=== PATIENT | female | born 1990 | race American Indian/Alaskan Native ===

== ENCOUNTER 2016-08-01 12:15 | Emergency (ER) | payer MEDICAID ==
[2016-08-01 12:49] VITALS: BP 108/68; PULSE 78; RESP 16; TEMP 98.4; O2SAT 100; BMI 20.7
--- NOTE | 2016-08-01 13:07 | ED PDOC ---
Arrival/HPI - General Chief Complaint: Abdominal Pain Time Seen by Provider: 08/01/16 12:57 Historian: Patient - History of Present Illness Narrative History of Present Illness (Text): 08/01/16 13:04 Gisela Wolfe is a 25 year old female who presents to the emergency department complaining of nausea, headache and mild suprapubic discomfort for past 3 days. States that her last menstrual period was July 02. Denies any fever, chills, vomiting, diarrhea, difficulty breathing, urinary symptoms, or any other complaints at this time. Time/Duration: < week (3 days ) Symptom Onset: Gradual Symptom Course: Unchanged Severity Level: Mild Activities at Onset: Light Past Medical History - Provider Review Nursing Documentation Reviewed: Yes - Psychiatric Hx Substance Use: No - Surgical History Hx Dilation and Curettage: Yes Family/Social History - Physician Review Nursing Documentation Reviewed: Yes Family/Social History: No Known Family HX Smoking Status: Never Smoked Hx Alcohol Use: No Hx Substance Use: No Allergies/Home Meds Allergies/Adverse Reactions: Allergies No Known Allergies Allergy (Verified 08/01/16 12:47) Home Medications: Home Meds Medication Instructions Recorded Confirmed No Known Home Med 08/01/16 08/01/16 Physical Exam - Physical Exam Narrative Physical Exam (Text): - Review of Systems Constitutional: Normal. absent: Fatigue, Weight Change, Fevers Eyes: Normal ENT: Normal Respiratory: Normal absent: SOB, Cough, Sputum Cardiovascular: Normal absent: Chest pain, Palpitations, Syncope Gastrointestinal: Present: Suprapubic discomfort, Nausea absent: Diarrhea, Vomiting Genitourinary: Normal. absent: Dysuria, Frequency, Hematuria, No vaginal bleeding or discharge. Musculoskeletal: Normal. absent: Arthralgias, Back Pain, Neck Pain Skin: Normal Neurological: Present: headache absent: Focal Weakness Endocrine: Normal Hemo/Lymphatic: Normal Psychiatric: Normal - Physical exam Patient appears age appropriate, speaking full sentences without difficulty - Systems Exam Head: Present: Atraumatic, Normocephalic Pupils: Present: PERRL Extraocular Muscles: Present: EOMI Conjunctiva: Present: Normal Mouth: Present: Moist Mucous Membranes Neck: Present: Normal Range of Motion. No: MIDLINE TENDERNESS, Paraspinal Tenderness Respiratory/Chest: Present: Clear to Auscultation, Good Air Exchange. No: Respiratory Distress, Accessory Muscle Use, Tachypneic Cardiovascular: Present: Regular Rate and Rhythm, Normal S1, S2, Peripheral Pulses Present. No: Murmurs Abdomen: Present: Normal Bowel Sounds, No: Tenderness, Peritoneal Signs, Rebound, Guarding, Distention Back: Present: Normal Inspection. No: Midline Tenderness, Paraspinal Tenderness Upper Extremity: Present: Normal Inspection. No: Cyanosis, Edema Lower Extremity: Present: Normal Inspection. No: Edema Neurological: Present: GCS=15, Speech Normal, cranial nerves II through XII fully intact with no cerebellar abnormality, neuro-sensory fully intact. No focal neurological deficits. Skin: Present: Warm, Dry, Normal Color. No: Rashes Lymphatic: Present: OX3, NI, NC Psychiatric: Present: Alert, Oriented x 3, Normal Insight, Normal Concentration Vital Signs Reviewed: Yes Vital Signs Temp Pulse Resp BP Pulse Ox 08/01/16 12:49 98.4 F 78 16 108/68 100 Temperature: Afebrile Blood Pressure: Normal Pulse: Regular Respiratory Rate: Normal Appearance: Positive for: Well-Appearing, Non-Toxic, Comfortable Pain Distress: None Mental Status: Positive for: Alert and Oriented X 3 Medical Decision Making ED Course and Treatment: 08/01/16 13:07 Impression: A 25 year old female who presents to the emergency department complaining of nausea, headache and suprapubic discomfort for 3 days. On PE, the abdomen is soft and non-tender, no other significant findings. Differential Diagnosis include but are not limited to: vs. UTI Plan: -- Chlamydia GC -- Pepcid -- Urinalysis -- Reassess and disposition Progress Notes: 08/01/16 13:09 Patient was instructed to follow up with medical records for chlamydia and gonorrhea results. 08/01/16 15:58 Dr. Foster US FINDINGS: The uterus measures 8.5 x 4.1 x 4.8 centimeters. The endometrium measures 12 millimeters. There is no intrauterine sac. The ovaries have a normal sonographic appearance. There is no free fluid the pelvis. IMPRESSION: No evidence of intrauterine sac. Recommend correlation with beta HCG levels and short-term interval follow-up as clinically indicated. Ectopic is not excluded. Patient has been made aware of her ultrasound results findings. She understands to start taking vitamins [id number] Patient also understands to come back into the emergency department or to follow -up with an outpatient photo cartographer for repeat blood work and ultrasound in the next 48 hours. Pt states she understands to return to the ER right away for new or worsening symptoms or for inability to f/u with PMD or specialist as instructed. Patient states that she fully agrees with and understands discharge instructions. States that she agrees with the plan and disposition. Verbalized and repeated discharge instructions and plan. I have given the patient opportunity to ask any additional questions. - Lab Interpretations Lab Results: 08/01/16 13:30 08/01/16 13:30 Lab Results 08/01/16 13:30: WBC 3.6 L, RBC 3.78, Hgb 11.5 L, Hct 33.6 L, MCV 88.9, MCH 30.4 , MCHC 34.2, RDW 12.6, Plt Count 231, MPV 10.6, Gran % 22.1 L, Lymph % (Auto) 58.3 H, [place] % (Auto) 15.7 H, Eos % (Auto) 3.1, Baso % (Auto) 0.8, Gran # 0.79 L , Lymph # 2.1, [place] # 0.6, Eos # 0.1, Baso # 0.03, Sodium 136, Potassium 3.8, Chloride 102, Carbon Dioxide 25, Anion Gap 13, BUN 17, Creatinine 0.8, Est GFR ( Amer) > 60, Est GFR (Non-Af Amer) > 60, Random Glucose 75, Calcium 9.0, Total Bilirubin 0.8, AST 18, ALT 30, Alkaline Phosphatase 53, Total Protein 7.8 , Albumin 4.1, Globulin 3.7, Albumin/Globulin Ratio 1.1, Beta HCG, Quant 274.32 H 08/01/16 13:10: Urine Color Yellow, Urine Appearance Clear, Urine pH 7.0, Ur Specific [place] 1.020, Urine Protein Trace H, Urine Glucose (UA) Negative, Urine Ketones Negative, Urine Blood Negative, Urine Nitrate Negative, Urine Bilirubin Negative, Urine Urobilinogen 1.0 H, Ur Leukocyte Esterase Negative, Urine RBC 0 - 2, Urine WBC 0 - 2, Ur Epithelial Cells 1 - 3, Urine Bacteria Small, Urine HCG, Qual Positive - RAD Interpretation Radiology Orders: 08/01/16 13:14 OB TRANSVAGINAL [US] Stat - Medication Orders Current Medication Orders: Discontinued Medications Famotidine (Pepcid) 40 mg PO STAT STA Stop: 08/01/16 13:02 Last Admin: 08/01/16 13:08 Dose: 40 MG - Scribe Statement The provider has reviewed the documentation as recorded by the Arnold Medeiros Provider Attestation: All medical record entries made by the Arnold were at my direction and personally dictated by me. I have reviewed the chart and agree that the record accurately reflects my personal performance of the history, physical exam, medical decision making, and the department course for this patient. I have also personally directed, reviewed, and agree with the discharge instructions and disposition. Disposition/Present on Arrival - Present on Arrival Any Indicators Present on Arrival: No History of DVT/PE: No History of Uncontrolled Diabetes: No Urinary Catheter: No History of Decub. Ulcer: No History Surgical Site Infection Following: None - Disposition Have Diagnosis and Disposition been Completed?: Yes Diagnosis: Abdominal pain affecting Disposition: HOME/ ROUTINE Disposition Time: 16:00 Patient Plan: Discharge Condition: GOOD Discharge Instructions (ExitCare): Abdominal Pain in (ED) Additional Instructions: Please start taking [id number] vitamins Please return to the emergency department or follow-up with a heeler machine outpatient for repeat blood work and repeat ultrasound within the next 48 hours as your signs and symptoms may be due to a which is not inside the uterus. PLEASE RETURN TO THE EMERGENCY DEPARTMENT FOR NEW OR WORSENING SYMPTOMS. RETURN RIGHT AWAY IF YOU CANNOT FOLLOW UP WITH YOUR PRIMARY CARE DOCTOR, CLINIC, OR SPECIALIST INSTRUCTED Referrals: Cristopher Farrar MD [Primary Care Provider] - Follow up with primary Bita Hampton MD [Staff Provider] - Follow up with primary
[2016-08-01 13:26] LABS: URINE BILIRUBIN NEGATIVE (NEGATIVE); URINE BLOOD NEGATIVE (NEGATIVE); URINE GLUCOSE (UA) NEGATIVE (NEGATIVE); URINE KETONE NEGATIVE (NEGATIVE); URINE LEUKOCYTE ESTERASE NEGATIVE Leu/uL (NEGATIVE); URINE PROTEIN TRACE mg/dL (<30 mg/dL)
[2016-08-01 13:31] LABS: URINE APPEARANCE CLEAR (CLEAR); URINE COLOR YELLOW (YELLOW)
[2016-08-01 13:31] LABS: ADD MANUAL DIFF? NO
[2016-08-01 13:32] LABS: URINE BACTERIA SMALL (NEG); URINE RBC 0 - 2 /hpf (0-2); URINE WBC 0 - 2 /hpf (0-6)
[2016-08-01 13:40] LABS: BASO # 0.03 K/mm3 (0.0-2.0); BASO % 0.8 % (0.0-3.0); EOS # 0.1 (0.0-0.7); EOS % 3.1 % (1.5-5.0); GRAN # 0.79 (1.4-6.5); GRAN % 22.1 % (50.0-68.0); HEMATOCRIT 33.6 % (36.0-48.0); LYMPH # 2.1 (1.2-3.4); LYMPH % 58.3 % (22.0-35.0); MEAN CELL VOLUME 88.9 fL (80.0-105.0); MEAN CORPUSCULAR HEMOGLOBIN 30.4 pg (25.0-35.0); MEAN CORPUSCULAR HGB CONC 34.2 g/dl (31.0-37.0); MEAN PLATELET VOLUME 10.6 fl (7.0-11.0); MONO # 0.6 (0.1-0.6); MONO % 15.7 % (1.0-6.0); PLATELET COUNT 231 10^3/uL (120.0-450.0); RED CELL DISTRIBUTION WIDTH 12.6 % (11.5-14.5); WHITE BLOOD COUNT 3.6 10^3/ul (4.5-11.0)
[2016-08-01 13:43] LABS: ALB/GLOB RATIO 1.1 (1.1-1.8); ALKALINE PHOSPHATASE 53 U/L (38-133); ALT/SGPT 30 U/L (7-56); AST/SGOT 18 U/L (15-39); BILIRUBIN,TOTAL 0.8 mg/dL (0.2-1.3); BLOOD UREA NITROGEN 17 mg/dL (7-21); CARBON DIOXIDE 25 mmol/L (21-33); CHLORIDE 102 mmol/L (98-107); GFR AFRICAN-AMERICAN > 60; GLUCOSE,RANDOM 75 mg/dL (70-110); POTASSIUM 3.8 mmol/L (3.6-5.0); SODIUM 136 mmol/L (132-148); TOTAL PROTEIN 7.8 g/dL (5.8-8.3)
--- NOTE | 2016-08-01 15:56 | US ---
PROCEDURE: HISTORY: , n/v COMPARISON: TECHNIQUE: FINDINGS: The uterus measures 8.5 x 4.1 x 4.8 centimeters. The endometrium measures 12 millimeters. There is no intrauterine sac. The ovaries have a normal sonographic appearance. There is no free fluid the pelvis. IMPRESSION: No evidence of intrauterine sac. Recommend correlation with beta HCG levels and short-term interval follow-up as clinically indicated. Ectopic is not excluded.
== END 2016-08-01 16:09 | disposition home or self-care (01) ==
LOC: ED 12:15
DX: O26.90 Pregnancy related conditions, unspecified, unspecified trimester (principal); Z3A.00 Weeks of gestation of pregnancy not specified; R10.9 Unspecified abdominal pain

== ENCOUNTER 2016-08-03 16:00 | Emergency (ER) | payer MEDICAID ==
[2016-08-03 16:01] VITALS: BMI 20.7
[2016-08-03 16:11] VITALS: BP 114/72; PULSE 80; TEMP 98.9
--- NOTE | 2016-08-03 16:33 | ED PDOC ---
Arrival/HPI - General Chief Complaint: Medical Clearance Time Seen by Provider: 08/03/16 16:19 Historian: Patient - History of Present Illness Narrative History of Present Illness (Text): 08/03/16 16:29 Patient presents to the emergency room today for repeat beta Quant testing, states that she was advised to return today for the repeat blood test. Otherwise patient admits that she is , states that she was recently diagnosed a few days ago here in the emergency room. Denies any abdominal pain, vaginal bleeding, vomiting, fever, urinary symptoms. Otherwise has no other complaints at this time. Past Medical History - Provider Review Nursing Documentation Reviewed: Yes - Infectious Disease Hx of Infectious Diseases: None - Reproductive Menopause: No - Psychiatric Hx Substance Use: No - Surgical History Hx Dilation and Curettage: Yes - Anesthesia Hx Anesthesia: No Family/Social History - Physician Review Nursing Documentation Reviewed: Yes Family/Social History: No Known Family HX Smoking Status: Never Smoked Hx Alcohol Use: No Hx Substance Use: No Allergies/Home Meds Allergies/Adverse Reactions: Allergies scalop Allergy (Uncoded 08/03/16 16:11) RASH Home Medications: Home Meds Medication Instructions Recorded Confirmed No Known Home Med 08/01/16 08/01/16 Review of Systems - Review of Systems Constitutional: Normal, Fatigue (related to current ). absent: Weight Change, Fevers, Night Sweats Respiratory: Normal. absent: SOB, Cough, Sputum Cardiovascular: Normal. absent: Chest Pain, Palpitations, Edema Gastrointestinal: Normal, Appetite Changes (related to current ). absent: Abdominal Pain, Stool Changes Genitourinary Female: Normal. absent: Dysuria, Frequency, Hematuria Skin: Normal. absent: Rash, Pruritis, Skin Lesions Physical Exam - Physical Exam Narrative Physical Exam (Text): 08/03/16 16:31 GENERAL APPEARANCE: Patient is awake, alert, oriented x 3, in no acute distress. SKIN: Warm, dry; (-) cyanosis. EYES: (-) conjunctival pallor. ENMT: Mucous membranes moist. NECK: (-) tenderness, (-) stiffness, (-) lymphadenopathy. CHEST AND RESPIRATORY: (-) rales, (-) rhonchi, (-) wheezes; breath sounds equal bilaterally. HEART AND CARDIOVASCULAR: (-) irregularity; (-) murmur, (-) gallop. ABDOMEN AND GI: Soft; (-) tenderness. EXTREMITIES: (-) deformity. NEURO AND PSYCH: Mental status as above; (-) focal findings. Vital Signs Temp Pulse Resp BP Pulse Ox 08/03/16 16:15 98.9 F 80 18 114/72 100 08/03/16 16:08 98.9 F 80 18 114/72 100 Medical Decision Making ED Course and Treatment: 08/03/16 16:31 25 yo F, presents for repeat beat quant. Has no other complaints. Patient last ER visit was on 08/01/16, her beta quant during that visit was 274 , she had a TV US which showed no evidence of intrauterine sac. Plan: -- Repeat beta quant 08/03/16 17:31 Repeat beta quant is 974. On reevaluation, patient is sitting comfortably in a chair, denies any abdominal pain or vaginal bleeding at this time. Beta quant results explained to the patient, was informed that based on the lab findings today and compared to the lab tests done on August 01, patient seem to have a normal at this time. Based on history, exam and diagnostic results plan will be for outpatient follow -up with OB referral provided. Patient states she fully agrees with and understands discharge instructions. States that she agrees with the plan and disposition. Verbalized and repeated discharge instructions and plan. I have given the patient opportunity to ask any additional questions. Follow up with envelope press operator in 2 days without fail. Advised to continue taking vitamins. Return to the emergency room at any time for any new or worsening symptoms. - Lab Interpretations Lab Results: Lab Results 08/03/16 16:34: Beta HCG, Quant 974.80 H - PA / SUPERVISOR [employer] / Resident Statement MD/DO has reviewed & agrees with the documentation as recorded. Disposition/Present on Arrival - Present on Arrival Any Indicators Present on Arrival: No History of DVT/PE: No History of Uncontrolled Diabetes: No Urinary Catheter: No History of Decub. Ulcer: No History Surgical Site Infection Following: None - Disposition Have Diagnosis and Disposition been Completed?: Yes Diagnosis: Disposition: HOME/ ROUTINE Disposition Time: 17:34 Patient Plan: Discharge Patient Problems: Current Active Problems Problem Status Onset Acute Condition: STABLE Discharge Instructions (ExitCare): First Trimester (ED) Print Language: KYRGYZ Additional Instructions: Thank you for letting us take care of you today. You were treated for repeat beta Quant, . The emergency medical care you received today was directed at your acute symptoms. Continue taking vitamins. Return to the Emergency Department if your symptoms worsen, do not improve, or if you have any other problems. Please contact OB clinic in 2 days for re-evaluation and follow up. Bring any paperwork you were given at discharge with you along with any medications you are taking to your follow up visit. Our treatment cannot replace ongoing medical care by a primary care provider (PCP) outside of the emergency department. Thank you for allowing the [facility] team to be part of your care today. Referrals: PCP,NO [Primary Care Provider] - Follow up with primary [facility] [Outside] - Follow up with primary Forms: WORK NOTE, SCHOOL NOTE
[2016-08-03 17:47] VITALS: RESP 16; O2SAT 98
== END 2016-08-03 17:47 | disposition home or self-care (01) ==
LOC: ED 16:00
DX: Z32.01 Encounter for pregnancy test, result positive (principal)

== ENCOUNTER 2016-09-27 16:13 | Emergency (ER) | payer MEDICAID, OTHER ==
[2016-09-27 16:48] VITALS: BMI 20.5
[2016-09-27 16:51] VITALS: RESP 16; TEMP 97.9
[2016-09-27] MEDS ORDERED: cefTRIAXone (Rocephin) 250 mg Inj IM STA (17:11)
--- NOTE | 2016-09-27 17:30 | ED PDOC ---
Arrival/HPI - General Chief Complaint: Female Genitourinary Time Seen by Provider: 09/27/16 17:10 Historian: Patient - History of Present Illness Narrative History of Present Illness (Text): 09/27/16 17:27 This 25 yo female gravid, presents to this ED requesting examination for STD since yesterday. Patient also noted a lesion on right side of genital labia. Patient denies dysuria vaginal discharge, or urinary symptoms. Time/Duration: Other (1 day) Context: Home Past Medical History - Provider Review Nursing Documentation Reviewed: Yes - Infectious Disease Hx of Infectious Diseases: None - Psychiatric Hx Substance Use: No - Surgical History Hx Dilation and Curettage: Yes - Anesthesia Hx Anesthesia: Yes Hx Anesthesia Reactions: No Hx Malignant Hyperthermia: No Family/Social History - Physician Review Nursing Documentation Reviewed: Yes Family/Social History: No Known Family HX Smoking Status: Never Smoked Hx Alcohol Use: No Hx Substance Use: No Allergies/Home Meds Allergies/Adverse Reactions: Allergies scalop Allergy (Uncoded 08/03/16 16:11) RASH Home Medications: Home Meds Medication Instructions Recorded Confirmed Multivit/Folic Acid/I 1 tab PO DAILY 09/27/16 09/27/16 [] Review of Systems - Review of Systems Constitutional: Normal. absent: Fatigue, Weight Change, Fevers Eyes: Normal ENT: Normal Respiratory: Normal. absent: SOB, Cough Cardiovascular: Normal Gastrointestinal: Normal. absent: Abdominal Pain, Nausea, Vomiting Genitourinary Female: Other (right vaginal lesion). absent: Dysuria, Frequency , Hematuria, Vaginal Bleeding, Vaginal Discharge Musculoskeletal: Normal Skin: Normal. absent: Pruritis Neurological: Normal. absent: Headache, Dizziness Endocrine: Normal Hemo/Lymphatic: Normal Psychiatric: Normal Physical Exam Vital Signs Temp Pulse Resp BP Pulse Ox 09/27/16 18:40 82 16 99/60 L 97 09/27/16 16:51 97.9 F 87 16 97/63 L 99 Temperature: Afebrile Blood Pressure: Normal Pulse: Regular Respiratory Rate: Normal Appearance: Positive for: Well-Appearing, Non-Toxic, Comfortable Pain Distress: None Mental Status: Positive for: Alert and Oriented X 3 - Systems Exam Head: Present: Atraumatic, Normocephalic Pupils: Present: PERRL Extroacular Muscles: Present: EOMI Conjunctiva: Present: Normal Mouth: Present: Moist Mucous Membranes Neck: Present: Normal Range of Motion Respiratory/Chest: Present: Clear to Auscultation, Good Air Exchange. No: Respiratory Distress, Accessory Muscle Use Cardiovascular: Present: Regular Rate and Rhythm, Normal S1, S2. No: Murmurs Abdomen: Present: Normal Bowel Sounds. No: Tenderness, Distention, Peritoneal Signs Genitourinary/Pelvic Exam: Present: Vaginal Lesions ((+) 6 mm wart like lesion visualized right vulva mucosa, non-tender. No Abscess or drainage.), Other ( Radha RN was broadcast correspondent). No: Vaginal Discharge, Vaginal Bleeding Back: Present: Normal Inspection. No: CVA Tenderness Upper Extremity: Present: Normal Inspection, Normal ROM, NORMAL PULSES, Neurovascularly Intact, Capillary Refill < 2s. No: Cyanosis, Edema Lower Extremity: Present: Normal Inspection, NORMAL PULSES, Normal ROM, Neurovascularly Intact, Capillary Refill < 2 s. No: Edema, CALF TENDERNESS Neurological: Present: GCS=15, CN II-XII Intact, Speech Normal, Motor Func Grossly Intact, Normal Sensory Function, Normal Cerebellar Funct, Gait Normal, Memory Normal Skin: Present: Warm, Dry, Normal Color. No: Rashes Lymphatic: No: Inguinal Adenopathy Psychiatric: Present: Alert, Oriented x 3, Normal Insight, Normal Concentration Medical Decision Making ED Course and Treatment: 09/27/16 18:16 Re-evaluation. Patient feels better. Discussed results and plan with patient who expresses understanding. All questions answered and there is agreement with the plan to discharge home with instructions. Patient stable for discharge. Return if symptoms persist or worsen. Patient was recommended to f/u with KEYBOARD INSTRUMENT TUNER for follow up visit and revaluation. Patient was recommended to review STD test with Dr. Bryan in 3-5 days. Return to emergency if symptom worsen Patient stated she does not have urinary symptoms, and she would prefer to wait for urine culture result to find out if abx is needed. I told patient to reviewed urine culture report in 2-3 days Re-evaluation Time: 18:16 Reassessment Condition: Re-examined, Improved - Lab Interpretations Lab Results: Lab Results 09/27/16 17:45: Urine Color Yellow, Urine Appearance Sl cloudy, Urine pH 6.0, Ur Specific [place] >= 1.030, Urine Protein 30 H, Urine Glucose (UA) Negative, Urine Ketones Negative, Urine Blood Negative, Urine Nitrate Negative, Urine Bilirubin Negative, Urine Urobilinogen 0.2, Ur Leukocyte Esterase Negative, Urine RBC 1 - 3, Urine WBC 2 - 5, Ur Epithelial Cells 10 - 12, Urine Bacteria Small, Urine Other Mucus I have reviewed the lab results: Yes Interpretation: No clinic. lab abnormalty (pending STD test) - Medication Orders Current Medication Orders: Discontinued Medications Azithromycin (Zithromax) 1,000 mg PO STAT STA PRN Reason: Protocol Stop: 09/27/16 17:13 Last Admin: 09/27/16 17:41 Dose: 1,000 mg Ceftriaxone Sodium (Rocephin) 250 mg IM STAT STA PRN Reason: Protocol Stop: 09/27/16 17:12 Last Admin: 09/27/16 17:42 Dose: 250 mg Disposition/Present on Arrival - Present on Arrival Any Indicators Present on Arrival: No History of DVT/PE: No History of Uncontrolled Diabetes: No Urinary Catheter: No History of Decub. Ulcer: No History Surgical Site Infection Following: None - Disposition Have Diagnosis and Disposition been Completed?: Yes Diagnosis: Genital warts Disposition: HOME/ ROUTINE Disposition Time: 18:20 Patient Plan: Discharge Condition: GOOD Discharge Instructions (ExitCare): Genital Warts (ED) Additional Instructions: Call Dr. Bryan KEYBOARD INSTRUMENT TUNER for follow up visit in 3-5 days. Review STD test with your doctor. No sexual intercourse till clear by your KEYBOARD INSTRUMENT TUNER. Return to emergency if symptoms worsen Referrals: PCP,NO [Primary Care Provider] - Follow up with primary Yelitza Bryan MD [Staff Provider] - Follow up with primary Forms: WORK NOTE
[2016-09-27 18:07] LABS: URINE BILIRUBIN NEGATIVE (NEGATIVE); URINE GLUCOSE (UA) NEGATIVE (NEGATIVE); URINE KETONE NEGATIVE (NEGATIVE); URINE LEUKOCYTE ESTERASE NEGATIVE Leu/uL (NEGATIVE); URINE PROTEIN 30 mg/dL (<30 mg/dL); URINE UROBILINOGEN 0.2 E.U./dL (<1 E.U./dL)
[2016-09-27 18:15] LABS: URINE COLOR YELLOW (YELLOW)
[2016-09-27 18:33] LABS: URINE APPEARANCE SL CLOUDY (CLEAR)
[2016-09-27 18:39] LABS: URINE BLOOD NEGATIVE (NEGATIVE)
[2016-09-27 18:40] LABS: URINE BACTERIA SMALL (NEG)
[2016-09-27 19:04] VITALS: BP 99/60; PULSE 82; O2SAT 97
== END 2016-09-27 18:45 | disposition home or self-care (01) ==
LOC: ED 16:13
DX: A63.0 Anogenital (venereal) warts (principal)
CPT/HCPCS: 81001; 81025; 87491; 87591; 96372; 99283; J0696